=== PATIENT | female | born 1995 | race Caucasian/White ===

== ENCOUNTER 2021-08-11 15:05 | Emergency (ER) | payer OTHER ==
[2021-08-11 15:13] VITALS: BP 141/84; PULSE 87; TEMP 97; BMI 25.8
[2021-08-11] MEDS ORDERED: SODIUM CHLORIDE 0.9% 500 ML INFUS.BAG IV ONE (16:24)
[2021-08-11] MEDS ORDERED: IBUPROFEN 600 MG TABLET (FP) PO ONE ×2 (16:24→16:52)
[2021-08-11 17:06] LABS: EPI CELLS 7 /uL (0-25.1); HYALINE CASTS 1 /uL (0-3.1); URINE APPEARANCE CLEAR; URINE BACTERIA 85 /uL (0-1359); URINE BILIRUBIN NEGATIVE (NEGATIVE); URINE COLOR YELLOW; URINE GLUCOSE (UA) NEGATIVE (NEGATIVE); URINE KETONE NEGATIVE (NEGATIVE); URINE LEUK ESTERASE NEGATIVE (NEGATIVE); URINE NITRITE NEGATIVE (NEGATIVE); URINE PROTEIN NEGATIVE (NEGATIVE); URINE RBC 135 /uL (0-23.9); URINE UROBILINOGEN 0.2 mg/dL (0.2-1.0); URINE WBC 11 /uL (0-25.8)
[2021-08-11 17:07] LABS: HCG,QUALITATIVE URINE Negative
[2021-08-11 17:18] LABS: BASO % 0.8 % (0-2.0); EOS % 3.6 % (0-4.5); HEMATOCRIT 32.4 % (32.4-45.2); HEMOGLOBIN 10.4 GM/dL (10.7-15.3); LYMPH % 36.1 % (8-40); MCH 21.6 pg (25.7-33.7); MCHC 32.1 g/dl (32.0-36.0); MEAN CELL VOLUME 67.5 fl (80-96); MEAN PLT VOLUME 8.9 fl (7.5-11.1); MONO % 17.2 % (3.8-10.2); NEUT % 42.3 % (42.8-82.8); PLATELET COUNT 360 10^3/uL (134-434); RDW 15.5 % (11.6-15.6); WHITE BLOOD COUNT 4.6 K/mm3 (4.0-10.0)
[2021-08-11 17:37] LABS: CALCIUM 9.2 mg/dL (8.5-10.1)
[2021-08-11 17:38] LABS: ALBUMIN 3.3 g/dl (3.4-5.0)
[2021-08-11 17:41] LABS: CREATININE 0.3 mg/dL (0.55-1.3)
[2021-08-11 17:43] LABS: BILIRUBIN,TOTAL 0.3 mg/dL (0.2-1); TOT PROT 7.4 g/dl (6.4-8.2)
[2021-08-11 19:26] LABS: ANISOCYTOSIS 2+; MACROCYTOSIS 0; PLATELET ESTIMATE NORMAL
== END 2021-08-11 19:05 | disposition home or self-care (01) ==
LOC: JER 15:05
DX: R53.83 Other fatigue (principal); M79.10 Myalgia, unspecified site
CPT/HCPCS: 36415; 71046-TC-FY; 72170-TC-FY; 80053; 81003; 84703; 85025; 87086; 93005; 93010; 99285-25